=== PATIENT | female | born 1980 | race Caucasian/White ===

== ENCOUNTER 2023-08-05 15:24 | Inpatient (IN) | payer MEDICAID, OTHER ==
[~2023-08-05] VITALS: Ht 172.7 cm; Wt 212.3 kg
[2023-08-05 16:01] LABS: COVID AG,FIA SOURCE NASAL SWAB
[2023-08-05 16:11] LABS: BASOPHILS % (AUTO) 0.5 % (0.0-2.0); EOSINOPHILS % (AUTO) 1.3 % (1.0-6.0); HEMATOCRIT 44.5 % (36-46); HEMOGLOBIN 14.6 g/dL (12.0-16.0); LYMPHOCYTES # (AUTO) 2.8 K/uL (1.0-4.8); LYMPHOCYTES % (AUTO) 21.5 % (22.0-44.0); MEAN CORPUSCULAR HGB CONC 32.8 G/dL (31.0-37.0); MEAN CORPUSCULAR VOLUME 88 fL (80-100); MONOCYTES # (AUTO) 0.9 K/uL (0.1-1.0); MONOCYTES % (AUTO) 6.7 % (2.0-9.0); NEUTROPHILS # (AUTO) 9.2 K/uL (1.8-7.7); PLATELET COUNT (AUTO) 335 K/uL (150-450); RED BLOOD CELL COUNT(AUTO) 5.04 MIL/uL (4.00-5.20); RED CELL DISTRIBUTION WIDTH 14.2 % (11.5-14.5); WHITE BLOOD COUNT (AUTO) 13.2 K/uL (4.5-11.0)
[2023-08-05 16:19] LABS: ANION GAP 8 mmol/L (8-16); CALCIUM, TOTAL 9.1 mg/dL (8.8-10.5); CARBON DIOXIDE 27 mmol/L (22-29); CHLORIDE 102 mmol/L (98-107); CREATININE 0.76 mg/dL (0.60-1.30); GLOMERULAR FILTR. RATE CALC > 60 mL/min (>60); GLUCOSE,RANDOM 115 mg/dL (70-110); POTASSIUM 3.9 mmol/L (3.5-5.1); SODIUM SERUM 137 mmol/L (136-145); UREA NITROGEN, BLOOD 11 mg/dL (7-18)
[2023-08-05 16:32] LABS: ALCOHOL, BLOOD (SERUM) < 3 mg/dL (0-10)
[2023-08-05 16:38] LABS: PH,URINE DRUG SCREEN 6.5 (5.0-8.0)
[2023-08-05 16:51] LABS: ALCOHOL, URINE DRUG SCREEN NEGATIVE (NEGATIVE); AMPHET/METH SCREEN,URINE NEGATIVE (NEGATIVE); BARBITURATE SCREEN, URINE NEGATIVE (NEGATIVE); BENZODIAZEPINES SCREEN,URINE NEGATIVE (NEGATIVE); CANNABINOID SCREEN,URINE POSITIVE (NEGATIVE); COCAINE SCREEN,URINE NEGATIVE (NEGATIVE); METHADONE SCREEN, URINE NEGATIVE (NEGATIVE); OPIATE SCREEN,URINE NEGATIVE (NEGATIVE); PHENCYCLIDINE SCREEN,URINE NEGATIVE (NEGATIVE)
[2023-08-05 16:53] LABS: SARS-COV2 (COVID) ANTIGEN,FIA Negative (Negative)
[2023-08-05] MEDS ORDERED: ZOLPIDEM TARTRATE 10 MG TABLET PO PRN (20:15)
[2023-08-05] MEDS ORDERED: HALOPERIDOL 5 MG TABLET PO PRN (20:15)
[2023-08-06] MEDS: LORazepam 2 MG TABLET PO PRN (00:19)
[2023-08-06 03:18] VITALS: BP 133/90; PULSE 82; RESP 18; TEMP 97.7; O2SAT 97
[2023-08-06 08:32] LABS: HEMOGLOBIN A1C 5.6 % (3.8-5.6)
[2023-08-06 08:46] VITALS: BP 124/80; PULSE 99; RESP 18; TEMP 97.7; O2SAT 97
[2023-08-06 08:48] LABS: CHOL/HDL RATIO 4.2 (3.9-5.7); FREE T4 (FREE THYROXINE) 1.23 ng/dL (0.76-1.46); T4 (THYROXINE) 8.9 mcg/dL (4.7-13.3); THYROID STIMULATING HORMONE 4.35 uIU/mL (0.36-3.74)
[2023-08-06] MEDS ORDERED: LOPERAMIDE HCL 2 MG CAPSULE PO PRN (09:45)
[2023-08-06] MEDS ORDERED: NICOTINE 14 MG/24 HOUR PATCH TD PRN (09:45)
[2023-08-06] MEDS ORDERED: PETROLATUM,WHITE 28 GM JELLY TP PRN (09:45)
[2023-08-06] MEDS ORDERED: MAGNESIUM HYDROXIDE SUSPENSION 30 ML UDCUP PO PRN (09:45)
[2023-08-06] MEDS ORDERED: MAG HYDROX/ALUMINUM HYD/SIMETH ES 30 ML SUSPENSION UDCUP PO PRN (09:45)
[2023-08-06] MEDS ORDERED: CloNIDine HCL 0.1 MG TABLET PO PRN (09:45)
[2023-08-06] MEDS ORDERED: GuaiFENesin/D-METHORPHAN [SUGAR-FREE] 200-20MG/10 ML SYRUP UDCUP PO PRN (09:45)
[2023-08-06] MEDS ORDERED: ACETAMINOPHEN 325 MG TABLET PO PRN (09:45)
[2023-08-06] MEDS ORDERED: ONDANSETRON HCL 4 MG TABLET PO PRN (09:45)
[2023-08-06] MEDS ORDERED: DOCUSATE SODIUM 100 MG CAPSULE PO PRN (09:45)
[2023-08-06] MEDS ORDERED: ALBUTEROL SULFATE HFA 90 MCG/PUFF 8 GM INHALER IH PRN (09:45)
[2023-08-06] MEDS: VENLAFAXINE HCL 150 MG ER CAPSULE PO SCH (15:12)
[2023-08-06] MEDS: IBUPROFEN 400 MG TABLET PO PRN (21:30)
[2023-08-06 22:10] VITALS: BP 134/86; PULSE 89; RESP 18; TEMP 97.5; O2SAT 96
[2023-08-07 09:00] VITALS: BP 122/89; PULSE 100; RESP 18; TEMP 97.6; O2SAT 95
[2023-08-07 11:59] LABS: HEMOGLOBIN A1C 5.8 % (3.8-5.6)
[2023-08-07 12:18] LABS: CHOL/HDL RATIO 4.1 (3.9-5.7); THYROID STIMULATING HORMONE 1.63 uIU/mL (0.36-3.74)
[2023-08-07] MEDS: ETHYL ALCOHOL 62% ANTISEPTIC NASAL SANITIZER 0.6 ML AMPUL NASAL SCH (12:41)
[2023-08-07] MEDS ORDERED: CHLORHEXIDINE GLUCONATE 2% TOWELETTE [2'S/6'S] TP SCH (22:00)
== END 2023-08-07 14:20 | disposition home or self-care (01) | DRG 751 ==
LOC: EMS 15:24 → UNDOADMIN 20:09 → EDH 20:09 → B2S 21:11
PROVIDERS: ADMIT Psychiatry & Neurology Child & Adolescent Psychiatry; ATTEND Psychiatry & Neurology Child & Adolescent Psychiatry
DX: F33.2 Major depressive disorder, recurrent severe without psychotic features (principal); R45.851 Suicidal ideations; F43.10 Post-traumatic stress disorder, unspecified; D72.829 Elevated white blood cell count, unspecified; F41.9 Anxiety disorder, unspecified; R73.9 Hyperglycemia, unspecified; F12.90 Cannabis use, unspecified, uncomplicated; Z91.018 Allergy to other foods; G47.00 Insomnia, unspecified; Z91.040 Latex allergy status
CPT/HCPCS: 80048; 80061; 80307; 83036; 84436; 84439; 84443; 84703; 85025; 87081; 99285; G0480